=== PATIENT | female | born 1935 | race African-American/Black ===

== ENCOUNTER 2016-06-30 08:00 | Inpatient (IN) | payer OTHER, BC ==
[2016-06-24 12:24] VITALS: BMI 27.8
--- NOTE | 2016-06-30 07:46 | HP ---
Admitting History and Physical - Admission Chief Complaint: right hip osteoarthritis x years History of Present Illness: 80 year old female presents in regard to her right hip. Longstanding history of right hip osteoarthritis. Patient has failed conservative treatment including activity modification and PO medications. At this point patient would like to proceed with a right total hip arthroplasty. - Past Medical History Cardiovascular: Yes: HTN, Hyperlipdemia - Past Surgical History Additional Past Surgical History: see written H&P - Smoking History Smoking history: Never smoked Aproximately how many cigarettes per day: 10 If you are a former smoker, when did you quit?: 18 months - Alcohol/Substance Use Hx Alcohol Use: No Home Medications - Allergies Allergies/Adverse Reactions: Allergies Allergy/AdvReac Type Severity Reaction Status Date / Time No Known Allergies Allergy Verified 11/26/13 21:09 - Home Medications Home Medications: Ambulatory Orders Simvastatin [Zocor -] 20 mg PO DAILY 05/16/13 Nebivolol HCl [Bystolic] 10 mg PO DAILY 11/26/13 Lisinopril [Zestril] 20 mg PO DAILY 06/24/16 Oxycodone Sr [Oxycontin] 20 mg PO Q6H PRN 06/24/16 Review of Systems - Review of Systems Musculoskeletal: reports: Decreased ROM (right hip), Joint Pain Physical Examination Constitutional: Yes: Well Nourished, No Distress Eyes: Yes: Conjunctiva Clear HENT: Yes: Atraumatic Neck: Yes: Supple Cardiovascular: Yes: Regular Rate and Rhythm Respiratory: Yes: Regular Gastrointestinal: Yes: Soft ...Rectal Exam: Yes: Deferred Musculoskeletal: Yes: Other (Limited ROM right hip) Assessment/Plan 80 year old female with longstanding right hip osteoarthritis. Patient has failed conservative treatment. Proceed with a right total hip arthroplasty.
[2016-06-30] MEDS ORDERED: CEFAZOLIN 1 GM/D5W 50 ML IVPB ONE (09:45)
[2016-06-30] MEDS ORDERED: ROPIVICAINE 0.2%/MORPH PF/KETOROLAC - 51ML DISP.SYRINGE IA ONE ×4 (09:45→13:09)
[2016-06-30] MEDS ORDERED: TRANEXAMIC ACID 1000 MG/10 ML VIAL IVPUSH ONE (09:45)
[2016-06-30] MEDS: GABAPENTIN 300 MG CAPSULE (FP) PO ONE ×2 (09:50→17:09)
[2016-06-30] MEDS: CELECOXIB 200 MG CAPSULE PO ONE ×2 (09:50→17:09)
[2016-06-30] MEDS: oxyCODONE HCL 10 MG SUSTAINED ACTING TABLET PO ONE ×2 (09:55→17:09)
[2016-06-30] MEDS ORDERED: PATIENT'S OWN MEDICATION (NON-FORMULARY) (Simvastatin 20 MG) PO SCH (10:00)
[2016-06-30] MEDS ORDERED: VANCOMYCIN 1,000 MG VIAL (RESTRICTED TO ID ONLY) ONE (10:03)
[2016-06-30] MEDS ORDERED: ceFAZolin SODIUM 1 GM VIAL ONE (10:03)
[2016-06-30] MEDS ORDERED: EPINEPHrine/PF 1 MG/1 ML (1:1,000) AMPULE ONE (10:10)
[2016-06-30] MEDS ORDERED: BUPIVACAINE HCL/PF 0.5% (5MG/ML) 10 ML VIAL ONE ×3 (10:10→13:24)
[2016-06-30] MEDS ORDERED: DEXAMETHASONE SOD PHOSPHATE/PF 10 MG/ML SDV ONE (10:12)
[2016-06-30] MEDS ORDERED: MIDAZOLAM HCL 2 MG/2 ML SINGLE DOSE VIAL ONE (10:12)
[2016-06-30] MEDS ORDERED: MAG HYDROX/AL HYDROX/SIMETH 30 ML UNIT-DOSE CUP PO PRN (10:35)
[2016-06-30] MEDS ORDERED: MAGNESIUM HYDROX 2400MG/30ML ORAL SUSPENSION 30 ML CUP PO PRN (10:35)
[2016-06-30] MEDS ORDERED: LACTATED RINGERS SOLUTION 1,000 ML IV SCH (10:45)
[2016-06-30] MEDS ORDERED: KETOROLAC TROMETHAMINE 30 MG/1 ML VIAL IVPUSH SCH (10:45)
[2016-06-30] MEDS ORDERED: oxyCODONE HCL 5 MG TABLET PO PRN (11:27)
[2016-06-30] MEDS ORDERED: ACETAMINOPHEN 1000 MG/100 ML VIAL (NON FORMULARY) IVPB ONE (11:27)
[2016-06-30] MEDS ORDERED: VANCOMYCIN 1,000 MG VIAL (RESTRICTED TO ID ONLY) IVPB ONE ×3 (11:56→13:03)
[2016-06-30] MEDS ORDERED: TRANEXAMIC ACID 1000 MG/10 ML VIAL IVPB ONE ×3 (11:57→13:01)
[2016-06-30] MEDS ORDERED: BUPIVACAINE HCL/PF 0.5% (5MG/ML) 10 ML VIAL IJ ONE (13:26)
--- NOTE | 2016-06-30 13:56 | OP ---
Operative Note - Note: Operative Date: 06/30/16 Operation: Right total hip replacement with MAKOplasty navigation Post-Operative Diagnosis: Same as Pre-op Surgeon: Gregg Massey Private Tutors And Teachers: Marina Norman Anesthesia: Spinal Estimated Blood Loss (mls): 300 Operative Report Dictated: Yes
[2016-06-30] MEDS ORDERED: LABETALOL HCL 5 MG/1 ML (100MG/20 ML VIAL) IVPUSH ONE (14:52)
[2016-06-30] MEDS ORDERED: traMADol HCL 50 MG TABLET PO ONE (14:55)
[2016-06-30] MEDS ORDERED: PROMETHAZINE HCL 25 MG/1 ML VIAL IVPUSH PRN (15:19)
[2016-06-30] MEDS: LISINOPRIL 20 MG TABLET (FP) PO SCH (17:10)
[2016-06-30] MEDS: NEBIVOLOL 10 MG TABLET (FP) PO SCH (17:10)
[2016-06-30] MEDS: traMADol HCL 50 MG TABLET PO SCH ×2 (17:11→20:37)
[2016-06-30] MEDS: CEFAZOLIN 1 GM/D5W 50 ML IVPB SCH (17:58)
[2016-06-30] MEDS: KETOROLAC TROMETHAMINE 30 MG/1 ML VIAL IVPUSH SCH (20:35)
[2016-06-30] MEDS: ACETAMINOPHEN 325 MG TABLET (FP) PO SCH (20:36)
[2016-06-30] MEDS ORDERED: oxyCODONE HCL 10 MG SUSTAINED ACTING TABLET PO SCH (22:00)
[2016-06-30] MEDS: GABAPENTIN 300 MG CAPSULE (FP) PO SCH (22:04)
[2016-06-30] MEDS: SENNOSIDES/DOCUSATE COMBO (SENNA PLUS) TABLET (UD) PO SCH (22:04)
[2016-06-30] MEDS: ATORVASTATIN CA 10 MG TABLET (FP) PO SCH (22:04)
[2016-06-30] MEDS: oxyCODONE HCL 10 MG SUSTAINED ACTING TABLET PO SCH (22:05)
[2016-07-01] MEDS: CEFAZOLIN 1 GM/D5W 50 ML IVPB SCH (01:33)
[2016-07-01] MEDS: ACETAMINOPHEN 325 MG TABLET (FP) PO SCH ×4 (02:26→20:18)
[2016-07-01] MEDS: traMADol HCL 50 MG TABLET PO SCH ×4 (02:26→20:19)
[2016-07-01] MEDS: KETOROLAC TROMETHAMINE 30 MG/1 ML VIAL IVPUSH SCH ×2 (02:27→08:00)
[2016-07-01] MEDS: ASPIRIN 325 MG TABLET PO SCH (08:03)
[2016-07-01 08:36] LABS: MCH 26.9 pg (25.7-33.7); MCHC 31.8 g/dl (32.0-36.0); MEAN CELL VOLUME 84.5 fl (80-96); MEAN PLT VOLUME 7.8 fl (7.5-11.1); PLATELET COUNT 279 K/MM3 (134-434); RDW 15.6 % (11.6-15.6); WHITE BLOOD COUNT 8.5 K/mm3 (4.0-10.0)
[2016-07-01] MEDS ORDERED: PT OWN MED DRAWER 7, Y5N ONE (09:22)
[2016-07-01] MEDS: MULTIVITAMINS (DAILY MVI) TABLET (FP) PO SCH (09:25)
[2016-07-01] MEDS: SENNOSIDES/DOCUSATE COMBO (SENNA PLUS) TABLET (UD) PO SCH ×2 (09:25→21:51)
[2016-07-01] MEDS: LISINOPRIL 20 MG TABLET (FP) PO SCH (09:26)
[2016-07-01] MEDS: oxyCODONE HCL 5 MG TABLET PO PRN ×2 (09:26→13:43)
[2016-07-01] MEDS: GABAPENTIN 300 MG CAPSULE (FP) PO SCH ×2 (09:26→21:52)
[2016-07-01] MEDS: NEBIVOLOL 10 MG TABLET (FP) PO SCH (09:26)
[2016-07-01] MEDS: CELECOXIB 200 MG CAPSULE PO SCH (09:26)
[2016-07-01] MEDS: PANTOPRAZOLE 40 MG TABLET (FP) PO SCH (09:26)
[2016-07-01 09:27] LABS: CALCIUM 8.7 mg/dl (8.4-10.2); CREATININE 1.2 mg/dl (0.6-1.3)
[2016-07-01] MEDS: oxyCODONE HCL 10 MG SUSTAINED ACTING TABLET PO SCH ×2 (09:29→21:52)
--- NOTE | 2016-07-01 11:04 | PN ---
Progress Note (short form) - Note Progress Note: Pt seen and examined. Comfortable. No complaints. AVSS Selected Entries 07/01/16 07/01/16 06:00 06:42 Temperature 98.0 F Pulse Rate 58 L Respiratory 18 Rate Blood Pressure 138/65 O2 Sat by Pulse 95 Oximetry (%) Oxygen Delivery Room Air Method Laboratory Tests 07/01/16 07/01/16 07:00 07:00 WBC 8.5 Hgb 9.5 L Hct 29.8 L Plt Count 279 Sodium 140 Potassium 3.7 Chloride 111 H Carbon Dioxide 24 Anion Gap 5 L BUN 25 H Creatinine 1.2 Random Glucose 99 Gen: NAD RLE: c/d/i, NVID A/P 80yo female POD#1 s/p R MISHA 1. PT/OOB 2. Plan for d/c home Thursday
--- NOTE | 2016-07-01 14:43 | SPEC ---
DATE OF OPERATION: 06/30/2016 PREOPERATIVE DIAGNOSIS: Right hip osteoarthritis. POSTOPERATIVE DIAGNOSIS: Right hip osteoarthritis. PROCEDURE: Right total hip replacement with Makoplasty robotic navigation. ATTENDING: Timo Ricardo MD PICKER TENDER HELPER: KIRTI Farmer ANESTHESIA: Spinal plus sedation. ESTIMATED BLOOD LOSS: 300 mL. COMPLICATIONS: None. SPECIMEN: Resected bone was sent for pathology analysis. DISPOSITION: The patient was transferred to the PACU in stable condition. IMPLANTS USED: [place] Accolade 2 size 6 femoral component, a 52-mm acetabular component with 25-mm screw, MDM +3 head ball. INDICATIONS: This is an 80-year-old female who presented to the office complaining of longstanding bilateral hip pain. She was diagnosed with a lateral hip osteoarthritis and had failed conservative management and was subsequently indicated for total hip replacement. The right hip was more painful than the left so elects to proceed with this side 1st. Risks, benefits and alternatives to the procedure were explained to the patient in great detail and she elected to proceed with the surgery. On the day of surgery, the patient was taken to the operating room and placed on the OR table. Spinal anesthesia was administered by the anesthesiologist. The patient was then positioned in the lateral decubitus position on the table and all bony prominences were padded. An axillary roll was placed. The operative hip was then prepped and draped in the usual sterile fashion and intravenous antibiotics were given for infection prophylaxis. A surgical time-out was then performed with the team, and the patients identity, procedure, side, availability of implants, and the administration of antibiotics was confirmed. An approximately 15cm longitudinal incision was made through the skin centered on the greater trochanter of the hip. This dissection was carried down through the subcutaneous tissues to the deep fascia. This fascia was then incised and a cobra was placed around the inferior femoral neck. Electrocautery was used to reflect the anterior 40% of the gluteus medius and minimus starting at the musculotendinous junction and leaving a cuff for closure. This was reflected to reveal the capsule of the hip joint. An anterior capsulectomy was performed and the femoral head and neck was visualized. Grade 4 changes were noted diffusely throughout the joint. At this point, three small stab incisions were made superior to the main incision along the iliac crest. Three self-drilling To pins were then placed and the Moody pelvic array was attached. Reference points on the limb were then entered into the robotic device and the limb length deficiency, offset, and femoral neck resection level were then calculated by the software. The hip was then dislocated with traction and external rotation, an oscillating saw was used to make the femoral neck cut at the level previously templated, and the femoral head was removed. Attention was then turned to the acetabulum. Retractors were then placed around the acetabulum and the labrum was removed. An acetabular checkpoint pin and the [employer] software was used to register the contours of the acetabulum. The acetabulum was then reamed in a single stage to the preoperatively templated size using the [employer] robotic arm. The appropriately sized cup was then impacted and had solid fixation as well as the preset inclination and version of 40 and 20 degrees, respectively. A polyethylene liner was then placed in the cup. Attention was then turned back to the femur, which was externally rotated for improved visualization. A femoral neck elevator was used to present the femoral neck cut, a box osteotome was used to enter the femoral canal, and a canal finder was used to go down the femoral shaft. The [employer] broaches were used sequentially until the optimal scratch fit was achieved. This correlated to the preoperatively templated size. From here, several different offset head and neck configurations were tested until excellent stability and length was obtained. These measurements were quantified using the [employer] software. All trial components were then removed, the femur was copiously irrigated, and the final components were placed. Leg length and stability were checked again and found to be excellent. Irrigation was performed again. Wound closure was started by repairing the abductor muscles with a No. 2 Fiberwire stitch in a [place] configuration passed through bone tunnels in the greater trochanter and tied over a bony bridge. This repair was then reinforced with a 0 VLoc 180 barbed suture. Next, No. 1 Polysorb and 0 VLoc 180 was used to close the fascia. The deep subcutaneous tissue was closed with No. 1 Polysorb sutures, and 2-0 Polysorb was used for the superficial subcutaneous tissue. The skin was closed using both 3-0 VLoc 90 suture in a running subcuticular fashion and SwiftSet skin adhesive. The Moody array and pins were removed from the iliac crest and the stab incision sites were irrigated and closed with 4-0 Polysorb sutures and SwiftSet skin adhesive. Once this was completed a sterile dressing was applied. The patient was then awakened and taken to the PACU in stable condition. TIMO RICARDO M.D. MARINA/[id number]
--- NOTE | 2016-07-01 14:54 | PN ---
Progress Note (short form) - Note Progress Note: 80F POD1 s/p R THR under spinal and paravertebral blocks doing well. AVSS, Pt states pain is well controlled, reports no anesthetic complications. Sensory and motor function is intact in both lower extremities.
[2016-07-01] MEDS: ONDANSETRON 4 MG/2 ML VIAL IVPB PRN (15:07)
[2016-07-01] MEDS: ATORVASTATIN CA 10 MG TABLET (FP) PO SCH (21:52)
[2016-07-02] MEDS: ACETAMINOPHEN 325 MG TABLET (FP) PO SCH ×2 (03:31→09:28)
[2016-07-02] MEDS: traMADol HCL 50 MG TABLET PO SCH ×2 (03:31→09:28)
[2016-07-02 05:59] VITALS: TEMP 98
[2016-07-02] MEDS: oxyCODONE HCL 5 MG TABLET PO PRN (06:25)
[2016-07-02 08:42] LABS: MCH 26.6 pg (25.7-33.7); MCHC 30.8 g/dl (32.0-36.0); MEAN CELL VOLUME 86.6 fl (80-96); PLATELET COUNT 259 K/MM3 (134-434); RDW 15.6 % (11.6-15.6); WHITE BLOOD COUNT 7.6 K/mm3 (4.0-10.0)
[2016-07-02 08:43] LABS: CALCIUM 8.5 mg/dl (8.4-10.2); CREATININE 1.6 mg/dl (0.6-1.3)
[2016-07-02] MEDS: CELECOXIB 200 MG CAPSULE PO SCH (09:27)
[2016-07-02] MEDS: MULTIVITAMINS (DAILY MVI) TABLET (FP) PO SCH (09:27)
[2016-07-02] MEDS: ASPIRIN 325 MG TABLET PO SCH (09:27)
[2016-07-02] MEDS: NEBIVOLOL 10 MG TABLET (FP) PO SCH (09:28)
[2016-07-02] MEDS: LISINOPRIL 20 MG TABLET (FP) PO SCH (09:28)
[2016-07-02] MEDS: GABAPENTIN 300 MG CAPSULE (FP) PO SCH (09:28)
[2016-07-02] MEDS: SENNOSIDES/DOCUSATE COMBO (SENNA PLUS) TABLET (UD) PO SCH (09:28)
[2016-07-02] MEDS: PANTOPRAZOLE 40 MG TABLET (FP) PO SCH (09:28)
[2016-07-02] MEDS: oxyCODONE HCL 10 MG SUSTAINED ACTING TABLET PO SCH (09:29)
[2016-07-02] MEDS: ONDANSETRON 4 MG/2 ML VIAL IVPB PRN (09:38)
--- NOTE | 2016-07-02 10:09 | PN ---
Progress Note (short form) - Note Progress Note: Pt seen and examined. Comfortable. No complaints. AVSS Selected Entries 07/02/16 05:59 Temperature 98.0 F Pulse Rate 58 L Respiratory 19 Rate Blood Pressure 110/40 O2 Sat by Pulse 94 L Oximetry (%) Oxygen Delivery Nasal Cannula Method Laboratory Tests 07/02/16 07/02/16 07:00 07:00 WBC 7.6 Hgb 9.0 L Hct 29.4 L Plt Count 259 Sodium 139 Potassium 4.3 Chloride 107 Carbon Dioxide 27 Anion Gap 5 L BUN 33 H D Creatinine 1.6 H D Random Glucose 85 Calcium 8.5 Gen: NAD RLE: c/d/i, NVID A/P 80yo female POD#2 s/p R MISHA 1. PT/OOB 2. d/c home today
[2016-07-02 12:15] VITALS: BP 115/55; PULSE 60
--- NOTE | 2016-07-02 13:19 | PATH ---
Surgical Pathology Report Patient Name: BHARGAVI MONCADA Med. Rec. #: [id number] /Age/Gender: 1935 (Age: 80) / F Account: [id number] Location: [facility] Taken: 06/30/2016 Received: 06/30/2016 Reported: 07/02/2016 Physicians: Gregg Massey M.D. Specimen(s) Received RIGHT FEMORAL HEAD Clinical History Right hip osteoarthritis Final Diagnosis FEMORAL HEAD, RIGHT, TOTAL HIP REPLACEMENT: CONSISTENT WITH DEGENERATIVE JOINT DISEASE. Electronically Signed Mat Blackman M.D. Gross Description Received in formalin, labeled "right femoral head" is a 4.4 x 4.4 x 4.1 cm femoral head with a 1 cm in length portion of femoral neck attached. The margin of resection is smooth. There is a 2 cm in greatest dimension area of eburnation present. The remaining articular surface is christensen-yellow and focally granular. The underlying trabecular bone is yellow and heteogeneous. A technical service representative section is submitted in one cassette, following decalcification. 07/01/201607/01/2016
== END 2016-07-02 12:43 | disposition home health service (06) | DRG 470 ==
LOC: FM/S 09:04
PROVIDERS: ADMIT Student in an Organized Health Care Education/Training Program; ATTEND Student in an Organized Health Care Education/Training Program
PROC: 8E0W0CZ Robotic Assisted Procedure of Trunk Region, Open Approach (ICD-10-PCS; 2016-06-30)
PROC: 0SR902A Replacement of Right Hip Joint with Metal on Polyethylene Synthetic Substitute, Uncemented, Open Approach (ICD-10-PCS; principal; 2016-06-30 11:31)
DX: M16.11 Unilateral primary osteoarthritis, right hip (principal); I10 Essential (primary) hypertension; E78.5 Hyperlipidemia, unspecified
CPT/HCPCS: 36415; 73523-TC; 80048; 85027; 88304-TC; 88311-TC; 94010; 94760; 97116-GP; 97162-PG

== ENCOUNTER 2019-04-04 06:02 | Inpatient (IN) | payer OTHER ==
[2019-03-21 12:33] VITALS: BMI 31.2
--- NOTE | 2019-04-03 21:53 | HP ---
Admitting History and Physical - Admission Chief Complaint: left hip osteoarthritis x years History of Present Illness: 83 year old female presents in regard to their left hip. Longstanding history of left hip osteoarthritis. Patient complains of pain, limited ROM, difficulty ambulating and difficulty completing ADLs. Patient has failed conservative treatment measures including PO medications, injections, exercise programs and activity modification. At this point, patient wishes to proceed with surgical intervention, a left total hip arthroplasty - MAKOplasty. History Source: Patient - Past Medical History Cardiovascular: Yes: HTN, Hyperlipdemia Renal/: Yes: Other (overactive bladder) ...: No Musculoskeletal: Yes: Osteoarthritis - Past Surgical History Additional Past Surgical History: See written history & physical. - Smoking History Smoking history: Former smoker Have you smoked in the past 12 months: No Aproximately how many cigarettes per day: 10 If you are a former smoker, when did you quit?: 2017 - Alcohol/Substance Use Hx Alcohol Use: No Home Medications - Allergies Allergies/Adverse Reactions: Allergies Allergy/AdvReac Type Severity Reaction Status Date / Time No Known Allergies Allergy Verified 03/21/19 12:08 - Home Medications Home Medications: Ambulatory Orders Simvastatin [Zocor -] 20 mg PO DAILY 05/16/13 oxyCODONE SR [Oxycontin] 20 mg PO BID #60 tab.er.12h MDD 2 07/02/16 Lisinopril [Zestril] 40 mg PO DAILY 03/21/19 Metoprolol Tartrate 50 mg PO BID 03/21/19 Oxycodone HCl 30 mg PO Q6H PRN 03/21/19 Oxybutynin Chloride [Ditropan Xl] 10 mg PO DAILY 03/22/19 Review of Systems - Review of Systems Musculoskeletal: reports: Decreased ROM (left hip), Joint Pain (left hip) Physical Examination Constitutional: Yes: Well Nourished, No Distress Eyes: Yes: Conjunctiva Clear HENT: Yes: Atraumatic, Normocephalic Neck: Yes: Supple Cardiovascular: Yes: Regular Rate and Rhythm Respiratory: Yes: Regular Gastrointestinal: Yes: Soft ...Rectal Exam: Yes: Deferred Musculoskeletal: Yes: Joint Stiffness (left hip) Edema: RLE: 2+ Assessment/Plan 83 year old female presents in regard to their left hip. Longstanding history of left hip osteoarthritis. Patient complains of pain, limited ROM, difficulty ambulating and difficulty completing ADLs. Patient has failed conservative treatment measures including PO medications, injections, exercise programs and activity modification. At this point, patient wishes to proceed with surgical intervention, a left total hip arthroplasty - MAKOplasty. Pros, cons, risks benefits and alternatives of a left total hip arthroplasty, MAKOplasty were discussed with the patient at length. Patient confirms their understanding and consents to proceed with a left total hip arthroplasty, MAKOplasty.
[~2019-04-04 06:02] MED LIST: BUPIVICAINE 0.25%/MORPH PF/KETOROLAC - 51ML DISP.SYRINGE IA ONE; TRANEXAMIC ACID 1000 MG/10 ML VIAL IVPB ONE; VANCOMYCIN 1,000 MG VIAL (RESTRICTED TO ID ONLY) IVPB ONE
[2019-04-04] MEDS ORDERED: BUPIVICAINE 0.25%/MORPH PF/KETOROLAC - 51ML DISP.SYRINGE IA ONE ×3 (06:21→11:04)
[2019-04-04] MEDS ORDERED: TRANEXAMIC ACID 1000 MG/10 ML VIAL IVPUSH ONE (06:21)
[2019-04-04] MEDS ORDERED: CEFAZOLIN 2 GM in DEXTROSE 5%-WATER - 50 ML IVPB ONE (06:21)
[2019-04-04] MEDS ORDERED: CELECOXIB 200 MG CAPSULE PO ONE (06:21)
[2019-04-04] MEDS ORDERED: oxyCODONE HCL 10 MG SUSTAINED ACTING TABLET PO ONE (06:21)
[2019-04-04] MEDS ORDERED: PANTOPRAZOLE 40 MG TABLET (FP) PO ONE (06:22)
[2019-04-04] MEDS ORDERED: DEXAMETHASONE SOD PHOSPHATE/PF 10 MG/ML SDV ONE (07:07)
[2019-04-04] MEDS ORDERED: MIDAZOLAM HCL 2 MG/2 ML SINGLE DOSE VIAL ONE (07:08)
[2019-04-04] MEDS ORDERED: BUPIVACAINE HCL/PF 0.5% (5 MG/ML) 30 ML VIAL IJ ONE (07:08)
[2019-04-04] MEDS ORDERED: VANCOMYCIN 1,000 MG VIAL (RESTRICTED TO ID ONLY) ONE (07:15)
[2019-04-04] MEDS ORDERED: ceFAZolin SODIUM 1 GM VIAL ONE ×2 (07:15→09:06)
[2019-04-04] MEDS ORDERED: SUCCINYLCHOLINE CHLORIDE 200 MG/10 ML SYRINGE ONE (07:24)
[2019-04-04] MEDS ORDERED: EPINEPHrine/PF 1 MG/1 ML (1:1,000) AMPULE ONE (08:18)
[2019-04-04] MEDS ORDERED: VANCOMYCIN 1,000 MG VIAL (RESTRICTED TO ID ONLY) IVPB ONE (10:41)
[2019-04-04] MEDS ORDERED: TRANEXAMIC ACID 1000 MG/10 ML VIAL IVPB ONE (11:00)
[2019-04-04] MEDS ORDERED: traMADol HCL 50 MG TABLET ONE (11:44)
[2019-04-04] MEDS ORDERED: ACETAMINOPHEN INJECTION 100 ML IVPB ONE (11:44)
[2019-04-04] MEDS ORDERED: KETOROLAC TROMETHAMINE 30 MG/1 ML VIAL ONE (11:44)
[2019-04-04] MEDS: KETOROLAC TROMETHAMINE 30 MG/1 ML VIAL IVPUSH SCH ×3 (11:50→23:58)
[2019-04-04] MEDS ORDERED: hydrALAZINE HCL 20 MG/ML VIAL ONE (11:55)
--- NOTE | 2019-04-04 11:55 | OP ---
Operative Note - Note: Operative Date: 04/04/19 Pre-Operative Diagnosis: left hip OA Operation: left MISHA SHINE Post-Operative Diagnosis: Same as Pre-op Surgeon: Gregg Massey Completions Manager: Marina Norman Anesthesia: Spinal Estimated Blood Loss (mls): 150
[2019-04-04] MEDS: ACETAMINOPHEN 1000 MG/100 ML VIAL (NON FORMULARY) IVPB ONE ×2 (11:56→13:34)
[2019-04-04] MEDS ORDERED: MAGNESIUM HYDROX 2400MG/30ML ORAL SUSPENSION 30 ML CUP PO PRN (11:59)
[2019-04-04] MEDS ORDERED: MAG HYDROX/AL HYDROX/SIMETH 30 ML UNIT-DOSE CUP PO PRN (11:59)
[2019-04-04] MEDS ORDERED: ONDANSETRON 4 MG/2 ML VIAL IVPUSH PRN (11:59)
[2019-04-04] MEDS: traMADol HCL 50 MG TABLET PO SCH ×3 (11:59→23:58)
[2019-04-04] MEDS ORDERED: LACTATED RINGERS SOLUTION 1,000 ML IV SCH (12:00)
[2019-04-04] MEDS ORDERED: oxyCODONE HCL 5 MG TABLET PO PRN ×2 (13:06)
[2019-04-04] MEDS ORDERED: hydrALAZINE HCL 20 MG/ML VIAL IVPUSH ONE (13:09)
--- NOTE | 2019-04-04 13:29 | SPEC ---
DATE OF OPERATION: 04/04/2019 PREOPERATIVE DIAGNOSIS: Left hip osteoarthritis. POSTOPERATIVE DIAGNOSIS: Left hip osteoarthritis. PROCEDURE: Left total hip replacement with MAKOplasty robotic navigation. ATTENDING: Timo Ricardo MD MANAGER OF DIGITAL: KIRTI Farmer ANESTHESIA: Spinal plus sedation. ESTIMATED BLOOD LOSS: 150 mL. COMPLICATIONS: None. DISPOSITION: The patient was transferred to the PACU in stable condition. IMPLANTS USED: [place] Accolade II size 8 femoral component, Andrez Trident II 52-mm acetabular component with MDM bipolar head ball and liner with inner ceramic +4-mm offset head ball, 30 and 25-mm acetabular screws. INDICATIONS: This is an 83-year-old female who presented to the office with severe bilateral hip pain. She was seen and examined by Dr. Ricardo and diagnosed with severe bilateral hip osteoarthritis. The patient underwent a right total hip replacement in 2017 and did very well postoperatively but continued to have severe left hip pain and ambulatory dysfunction. She was initially treated conservatively, but this was not sufficient, so she was, therefore, indicated for a left total hip replacement. The risks, benefits, and alternatives to the procedure were explained to the patient in great detail, and she elected to proceed with the procedure. DESCRIPTION OF PROCEDURE: On the day of surgery, the patient was taken to the operating room and placed on the OR table. Spinal anesthesia was administered by the anesthesiologist. The patient was then positioned in the lateral decubitus position on the table and all bony prominences were padded. An axillary roll was placed. The operative hip was then prepped and draped in the usual sterile fashion and intravenous antibiotics were given for infection prophylaxis. A surgical time-out was then performed with the team, and the patients identity, procedure, side, availability of implants, and the administration of antibiotics were confirmed. An approximately 15-cm longitudinal incision was made through the skin centered on the greater trochanter of the hip. This dissection was carried down through the subcutaneous tissues to the deep fascia. This fascia was then incised and a Cobra was placed around the inferior femoral neck. Electrocautery was used to reflect the anterior 40% of the gluteus medius and minimus starting at the musculotendinous junction and leaving a cuff for closure. This was reflected to reveal the capsule of the hip joint. An anterior capsulectomy was performed and the femoral head and neck were visualized. Grade 4 changes were noted diffusely throughout the joint. At this point, three small stab incisions were made superior to the main incision along the iliac crest. Three self-drilling Steinmann pins were then placed and the [employer] pelvic array was attached. Reference points on the limb were then entered into the robotic device and the limb length deficiency, offset, and femoral neck resection level were then calculated by the software. The hip was then dislocated with traction and external rotation. An oscillating saw was used to make the femoral neck cut at the level previously templated, and the femoral head was removed. Attention was then turned to the acetabulum. Retractors were then placed around the acetabulum and the labrum was removed. An acetabular checkpoint pin and the [employer] software were used to register the contours of the acetabulum. The acetabulum was then reamed in a single stage to the preoperatively templated size using the [employer] robotic arm. The appropriately sized cup was then impacted and had solid fixation as well as the preset inclination and version of 40 and 20 degrees, respectively. A polyethylene liner was then placed in the cup. Attention was then turned back to the femur, which was externally rotated for improved visualization. A femoral neck elevator was used to present the femoral neck cut, a box osteotome was used to enter the femoral canal, and a canal finder was used to go down the femoral shaft. The Moody broaches were used sequentially until the optimal scratch fit was achieved. This correlated with the preoperatively templated size. From here, several different offset head and neck configurations were tested until excellent stability and length were obtained. These measurements were quantified using the [employer] software. All trial components were then removed, the femur was copiously irrigated, and the final components were placed. Leg length and stability were checked again and found to be excellent. Irrigation was performed again. After final implants were placed, a 3-minute dilute Betadine lavage was performed. Following this, the wound was thoroughly irrigated with normal saline via pulsatile lavage, and wound closure was begun. Wound closure was started by repairing the abductor muscles with a no. 2 FiberWire stitch in a [place] configuration passed through bone tunnels in the greater trochanter and tied over a bony bridge. This repair was then reinforced with a 0 V-Loc 180 barbed suture. Next, no. 1 Polysorb and 0 V-Loc 180 were used to close the fascia. The deep subcutaneous tissue was closed with no. 1 Polysorb sutures, and 2-0 Polysorb was used for the superficial subcutaneous tissue. The skin was closed using both 3-0 V-Loc 90 suture in a running subcuticular fashion and SwiftSet skin adhesive. The Moody array and pins were removed from the iliac crest and the stab incision sites were irrigated and closed with 4-0 Polysorb sutures and SwiftSet skin adhesive. Once this was completed, a sterile dressing was applied. The patient was then awakened and taken to the PACU in stable condition. TIMO RICARDO M.D. [id number]
[2019-04-04] MEDS: ACETAMINOPHEN 325 MG TABLET (FP) PO SCH ×2 (18:28→23:58)
[2019-04-04] MEDS: CEFAZOLIN 2 GM/D5W 2 GM/50 ML ML IVPB SCH (18:30)
[2019-04-04] MEDS ORDERED: DEXAMETHASONE SOD PHOSPHATE 10 MG/1 ML VIAL IVPB ONE (20:00)
[2019-04-04] MEDS: SENNOSIDES/DOCUSATE COMBO (SENNA PLUS) TABLET (UD) PO SCH (21:34)
[2019-04-04] MEDS: ASCORBIC ACID 500 MG TABLET (FP) PO SCH (21:34)
[2019-04-04] MEDS: METOPROLOL TARTRATE 50 MG TABLET (FP) PO SCH (21:34)
[2019-04-04] MEDS: GABAPENTIN 300 MG CAPSULE (FP) PO SCH (21:34)
[2019-04-04] MEDS: CELECOXIB 200 MG CAPSULE PO SCH (21:35)
[2019-04-04] MEDS: oxyCODONE HCL 10 MG SUSTAINED ACTING TABLET PO SCH (21:36)
[2019-04-05] MEDS: CEFAZOLIN 2 GM/D5W 2 GM/50 ML ML IVPB SCH (01:04)
[2019-04-05] MEDS: traMADol HCL 50 MG TABLET PO SCH ×4 (06:21→23:43)
[2019-04-05] MEDS: KETOROLAC TROMETHAMINE 30 MG/1 ML VIAL IVPUSH SCH (06:21)
[2019-04-05] MEDS: ACETAMINOPHEN 325 MG TABLET (FP) PO SCH ×4 (06:22→23:43)
[2019-04-05] MEDS: ASPIRIN 325 MG TABLET PO SCH (08:00)
[2019-04-05 08:16] LABS: CALCIUM 8.4 mg/dl (8.5-10); CREATININE 1.1 mg/dl (0.55-1.3); POTASSIUM 4.3 mmol/L (3.5-5.1)
[2019-04-05 08:29] LABS: MCH 29.6 pg (25.7-33.7); MCHC 33.2 g/dl (32.0-36.0); MEAN CELL VOLUME 89.1 fl (80-96); MEAN PLT VOLUME 8.3 fl (7.5-11.1); PLATELET COUNT 266 K/MM3 (134-434); RBC 4.04 M/mm3 (3.60-5.2); RDW 14.6 % (11.6-15.6); WHITE BLOOD COUNT 9.1 K/mm3 (4.0-10.8)
[2019-04-05] MEDS: SENNOSIDES/DOCUSATE COMBO (SENNA PLUS) TABLET (UD) PO SCH ×2 (09:15→21:22)
[2019-04-05] MEDS: CELECOXIB 200 MG CAPSULE PO SCH ×2 (09:15→21:21)
[2019-04-05] MEDS: METOPROLOL TARTRATE 50 MG TABLET (FP) PO SCH ×2 (09:15→21:21)
[2019-04-05] MEDS: GABAPENTIN 300 MG CAPSULE (FP) PO SCH ×2 (09:15→21:21)
[2019-04-05] MEDS: oxyCODONE HCL 10 MG SUSTAINED ACTING TABLET PO SCH ×2 (09:15→21:21)
[2019-04-05] MEDS: ATORVASTATIN CA 10 MG TABLET (FP) PO SCH (09:15)
[2019-04-05] MEDS: PANTOPRAZOLE 40 MG TABLET (FP) PO SCH (09:20)
[2019-04-05] MEDS: ASCORBIC ACID 500 MG TABLET (FP) PO SCH ×2 (09:20→21:22)
[2019-04-05] MEDS: LISINOPRIL 20 MG TABLET (FP) PO SCH (09:20)
[2019-04-05] MEDS: SOLIFENACIN SUCCINATE 5 MG TAB PO SCH (09:20)
[2019-04-05] MEDS: MULTIVITAMINS (DAILY MVI) TABLET (FP) PO SCH (09:20)
[2019-04-05] MEDS ORDERED: PATIENT'S OWN MEDICATION (NON-FORMULARY) (Simvastatin 20 MG) PO SCH (10:00)
[2019-04-05] MEDS ORDERED: PATIENT'S OWN MEDICATION (NON-FORMULARY) (Oxybutynin Chloride [Ditropan Xl] 10 MG) PO SCH (10:00)
--- NOTE | 2019-04-05 20:32 | PN ---
Progress Note (short form) - Note Progress Note: Pt seen and examined. Doing well. AVSS Selected Entries 04/06/19 02:00 Temperature 98.1 F Pulse Rate 79 Respiratory 17 Rate Blood Pressure 129/50 L O2 Sat by Pulse 95 Oximetry (%) Oxygen Delivery Room Air Method Laboratory Tests 04/05/19 04/05/19 06:59 06:59 WBC 9.1 Hgb 12.0 Hct 36.0 D Plt Count 266 Sodium 141 Potassium 4.3 Chloride 110 H Carbon Dioxide 22 Anion Gap 9 BUN 29.0 H Creatinine 1.1 Random Glucose 132 H Calcium 8.4 L Gen: NAD LLE: c/d/i, NVID A/P 83yo female s/p L SHINE MISHA PT/OOB D/C home Thursday
[2019-04-06 06:25] VITALS: TEMP 98.3
[2019-04-06] MEDS: traMADol HCL 50 MG TABLET PO SCH ×2 (06:32→12:29)
[2019-04-06] MEDS: ACETAMINOPHEN 325 MG TABLET (FP) PO SCH ×2 (06:36→12:29)
[2019-04-06] MEDS: ASPIRIN 325 MG TABLET PO SCH (07:25)
[2019-04-06 08:25] LABS: HEMATOCRIT 36.2 % (32.4-45.2); HEMOGLOBIN 11.9 GM/dl (10.7-15.3); MCH 29.2 pg (25.7-33.7); MCHC 32.8 g/dl (32.0-36.0); MEAN CELL VOLUME 89.1 fl (80-96); MEAN PLT VOLUME 8.3 fl (7.5-11.1); PLATELET COUNT 231 K/MM3 (134-434); RBC 4.06 M/mm3 (3.60-5.2); RDW 14.8 % (11.6-15.6); WHITE BLOOD COUNT 6.2 K/mm3 (4.0-10.8)
[2019-04-06 09:14] VITALS: BP 130/50; PULSE 60
[2019-04-06] MEDS: SENNOSIDES/DOCUSATE COMBO (SENNA PLUS) TABLET (UD) PO SCH (09:44)
[2019-04-06] MEDS: PANTOPRAZOLE 40 MG TABLET (FP) PO SCH (09:45)
[2019-04-06] MEDS: CELECOXIB 200 MG CAPSULE PO SCH (09:45)
[2019-04-06] MEDS: METOPROLOL TARTRATE 50 MG TABLET (FP) PO SCH (09:45)
[2019-04-06] MEDS: SOLIFENACIN SUCCINATE 5 MG TAB PO SCH (09:45)
[2019-04-06] MEDS: ATORVASTATIN CA 10 MG TABLET (FP) PO SCH (09:45)
[2019-04-06] MEDS: LISINOPRIL 20 MG TABLET (FP) PO SCH (09:45)
[2019-04-06] MEDS: ASCORBIC ACID 500 MG TABLET (FP) PO SCH (09:45)
[2019-04-06] MEDS: MULTIVITAMINS (DAILY MVI) TABLET (FP) PO SCH (09:45)
[2019-04-06] MEDS: GABAPENTIN 300 MG CAPSULE (FP) PO SCH (09:45)
[2019-04-06] MEDS: oxyCODONE HCL 10 MG SUSTAINED ACTING TABLET PO SCH (09:46)
--- NOTE | 2019-04-06 10:03 | DS ---
Physical Examination Vital Signs: Vital Signs Temperature 98.3 F 04/06/19 09:12 Pulse Rate 60 04/06/19 09:12 Respiratory Rate 14 04/06/19 09:12 Blood Pressure 130/50 L 04/06/19 09:12 O2 Sat by Pulse Oximetry (%) 96 04/06/19 07:55 Labs: CBC, BMP 04/06/19 08:08 04/05/19 06:59 Discharge Summary Problems reviewed: Yes Reason For Visit: LEFT HIP OSTEOARTHRITIS Current Active Problems Osteoarthritis of left hip (Acute) Procedures: Principal: left nathalie MISHA Hospital Course: Admitted for elective surgery. Procedure performed without complications. Pt received postoperative antibiotic prophylaxis and DVT ppx. Ambulated with physical therapy. Stable for discharge home with outpatient followup. Condition: Stable - Instructions Diet, Activity, Other Instructions: Dr Massey - Hip Replacement Instructions Keep the Aquacel dressing on until removed by Dr. Massey - it is antibacterial and waterproof and you can shower with it on. Follow up with Dr. Massey ThursdayApril 23 at 12:30PM at the [facility]. [address] [place] [address] Take one Aspirin 325mg daily for 6 weeks to prevent blood clots in your legs. Take one Pantoprazole 40mg daily for 6 weeks to protect against heartburn and ulcers. Take Cephalexin (antibiotic) 3x/day for 10 days to help prevent skin infection. Take Celebrex 200mg daily for 30 days to reduce swelling and inflammation. Take a multivitamin, stool softener and extra Vitamin C supplement daily. For pain: Resume taking your preop dose of OxyContin 20mg twice daily. Stop taking your preop oxycodone 30mg as you will have less pain overall now that the arthritis is gone. Instead, take Percocet 10/325 mg every 3 hours as needed for pain. Activity: You can put as much weight on the operative leg as you want. For the first 6 weeks, all you need to do is walk around the house, go up/down stairs, and sit down/get up. After 6 weeks when everything is healed (and bone has grown into the implant) you will be sent for more intensive outpatient physical therapy. Always use a walker or cane for balance and to prevent falls. Expect to see swelling / bruising from the operative site all the way down to your toes. Wear the Compression stocking on the operative side during the day to minimize how much swelling there is in your foot/ankle. Don't wear the stocking at night. You don't have to wear the stocking on the other side. Disposition: VNS/HOME HEALTH CARE - Home Medications Comprehensive Discharge Medication List: Ambulatory Orders Simvastatin [Zocor -] 20 mg PO DAILY 05/16/13 oxyCODONE SR [Oxycontin] 20 mg PO BID #60 tab.er.12h MDD 2 07/02/16 Lisinopril [Zestril] 40 mg PO DAILY 03/21/19 Metoprolol Tartrate 50 mg PO BID 03/21/19 Oxybutynin Chloride [Ditropan Xl] 10 mg PO DAILY 03/22/19 Ascorbic Acid [Vitamin C -] 500 mg PO BID tablet 04/06/19 Aspirin [ASA -] 325 mg PO DAILY@0800 tablet 04/06/19 Celecoxib [CeleBREX -] 200 mg PO DAILY #30 capsule 04/06/19 Cephalexin Monohydrate [Keflex -] 500 mg PO TID #30 capsule 04/06/19 Multivitamins [Multivit ([facility] Formulary)] 1 tab PO DAILY tab 04/06/19 Oxycodone HCl/Acetaminophen [Percocet 10-325 mg Tablet] 1 each PO Q3H PRN #90 tablet MDD 8 04/06/19 Pantoprazole Sodium [Protonix -] 40 mg PO DAILY #40 tablet.ec 04/06/19 Sennosides/Docusate Sodium [Pericolace -] 2 tablet PO BID tablet 04/06/19
--- NOTE | 2019-04-06 16:00 | PATH ---
Surgical Pathology Report Patient Name: BHARGAVI MONCADA Med. Rec. #: [id number] /Age/Gender: 1935 (Age: 83) / F Account: [id number] Location: [facility] MED[facility] Taken: 04/04/2019 Received: 04/04/2019 Reported: 04/06/2019 Physicians: Gregg Massey M.D. Specimen(s) Received LEFT FEMORAL HEAD Clinical History Left hip osteoarthritis Final Diagnosis FEMORAL HEAD, LEFT, TOTAL HIP REPLACEMENT: DEGENERATIVE JOINT DISEASE. Electronically Signed Divina Ball M.D. Gross Description Received in formalin, labeled "left femoral head," is a 4.4 x 4.4 x 3.7 cm. femoral head with a 1.0 cm in length portion of femoral neck attached. The margin of resection is smooth. There is a 1.5 cm in greatest dimension area of eburnation present. The remaining articular surface is christensen-yellow and focally granular. The underlying trabecular bone is yellow and hard. A sales representative health insurance section is submitted in one cassette, following decalcification. /04/05/2019 [facility]04/05/2019
== END 2019-04-06 13:25 | disposition home health service (06) | DRG 470 ==
LOC: FM/S 06:02
PROVIDERS: ADMIT Student in an Organized Health Care Education/Training Program; ATTEND Student in an Organized Health Care Education/Training Program
PROC: 8E0W0CZ Robotic Assisted Procedure of Trunk Region, Open Approach (ICD-10-PCS; 2019-04-04)
PROC: 0SRB03A Replacement of Left Hip Joint with Ceramic Synthetic Substitute, Uncemented, Open Approach (ICD-10-PCS; principal; 2019-04-04 09:19)
DX: M16.12 Unilateral primary osteoarthritis, left hip (principal); I10 Essential (primary) hypertension; E78.5 Hyperlipidemia, unspecified; Z87.891 Personal history of nicotine dependence
CPT/HCPCS: 36415; 73502-TC-LT-FY; 80048; 85027; 88305-TC; 88311-TC; 94760; 97116-GP; 97163-GP; J0131; J1100

== ENCOUNTER 2020-06-11 10:21 | Emergency (ER) | payer OTHER | END 2020-06-11 13:00 | disposition home or self-care (01) | LOC: JVIRT 10:21 | DX: Z03.818 Encounter for observation for suspected exposure to other biological agents ruled out (principal) | CPT/HCPCS: C9803; G2012-GT; Q3014-GT; U0003 ==

== ENCOUNTER 2020-07-31 14:18 | Inpatient (IN) | payer OTHER ==
[2020-07-31 18:10] LABS: BASO % 3.3 % (0-2.0); EOS % 3.5 % (0-4.5); HEMATOCRIT 31.8 % (32.4-45.2); HEMOGLOBIN 10.1 GM/dl (10.7-15.3); LYMPH % 26.5 % (8-40); MCH 28.7 pg (25.7-33.7); MCHC 31.7 g/dl (32.0-36.0); MEAN CELL VOLUME 90.4 fl (80-96); MEAN PLT VOLUME 7.5 fl (7.5-11.1); MONO % 11.4 % (3.8-10.2); NEUT % 55.3 % (42.8-82.8); PLATELET COUNT 240 K/MM3 (134-434); RBC 3.52 M/mm3 (3.60-5.2); RDW 17.6 % (11.6-15.6)
[2020-07-31 18:24] LABS: CALCIUM 8.7 mg/dl (8.5-10); PHOSPHOROUS 3.7 mg/dl (2.5-4.9); POTASSIUM 4.3 mmol/L (3.5-5.1)
[2020-07-31 18:35] LABS: ALBUMIN 3.2 g/dl (3.4-5.0); BILIRUBIN,TOTAL 0.6 mg/dl (0.2-1); CREATININE 1.5 mg/dl (0.55-1.3); MAGNESIUM 1.9 mg/dL (1.8-2.4)
[2020-07-31 20:15] LABS: N-TERMINAL BNP 4466.7 pg/ml (5-450)
[2020-07-31] MEDS ORDERED: FUROSEMIDE 20 MG TABLET (FP) PO ONE (20:28)
[2020-07-31] MEDS ORDERED: FUROSEMIDE 40 MG/4 ML INJECTABLE VIAL IVPUSH ONE (20:50)
[2020-07-31] MEDS ORDERED: FUROSEMIDE 100 MG/10 ML INJECTABLE VIAL ONE (20:51)
[2020-07-31] MEDS ORDERED: MELATONIN 5 MG TABLETS PO ONE (22:54)
[2020-08-01 02:20] VITALS: BMI 38.6
[2020-08-01 03:07] LABS: EPI CELLS 15 /uL (0-25.1); HYALINE CASTS 1 /uL (0-3.1); URINE APPEARANCE CLEAR; URINE BACTERIA 115 /uL (0-1359); URINE BILIRUBIN NEGATIVE (NEGATIVE); URINE COLOR YELLOW; URINE GLUCOSE (UA) NEGATIVE (NEGATIVE); URINE KETONE NEGATIVE (NEGATIVE); URINE LEUK ESTERASE 2+ (NEGATIVE); URINE NITRITE NEGATIVE (NEGATIVE); URINE PROTEIN NEGATIVE (NEGATIVE); URINE RBC 11 /uL (0-23.9); URINE UROBILINOGEN 0.2 mg/dL (0.2-1.0); URINE WBC 96 /uL (0-25.8)
[2020-08-01] MEDS ORDERED: METOPROLOL TARTRATE 50 MG TABLET (FP) PO ONE (05:55)
[2020-08-01] MEDS ORDERED: hydrALAZINE HCL 25 MG TABLET (FP) PO SCH (06:00)
[2020-08-01 08:11] LABS: CALCIUM 8.3 mg/dl (8.5-10); CREATININE 1.3 mg/dl (0.55-1.3); MAGNESIUM 1.7 mg/dL (1.8-2.4); PHOSPHOROUS 4.6 mg/dl (2.5-4.9); POTASSIUM 4.3 mmol/L (3.5-5.1)
[2020-08-01 08:13] LABS: HEMATOCRIT 28.5 % (32.4-45.2); HEMOGLOBIN 9.1 GM/dl (10.7-15.3); MCH 28.9 pg (25.7-33.7); MCHC 31.8 g/dl (32.0-36.0); MEAN CELL VOLUME 90.9 fl (80-96); MEAN PLT VOLUME 7.8 fl (7.5-11.1); PLATELET COUNT 209 K/MM3 (134-434); RBC 3.14 M/mm3 (3.60-5.2); RDW 17.5 % (11.6-15.6); WHITE BLOOD COUNT 4.1 K/mm3 (4.0-10.8)
[2020-08-01] MEDS ORDERED: PATIENT'S OWN MEDICATION (NON-FORMULARY) (Oxybutynin Chloride [Ditropan Xl] 10 MG Tab.Er.2 PO SCH (10:00)
[2020-08-01] MEDS: METOPROLOL TARTRATE 50 MG TABLET (FP) PO SCH ×2 (10:17→21:32)
[2020-08-01] MEDS: FUROSEMIDE 40 MG/4 ML INJECTABLE VIAL IVPUSH SCH ×2 (10:18→21:32)
[2020-08-01] MEDS: APIXABAN 5 MG TABLET PO SCH ×2 (10:18→21:32)
[2020-08-01] MEDS: SOLIFENACIN SUCCINATE 5 MG TAB PO SCH (13:06)
[2020-08-01] MEDS ORDERED: MAGNESIUM SULF 50% (8.12 MEQ/2 ML-1 GM VIAL) IVPB ONE (15:04)
[2020-08-01] MEDS: ATORVASTATIN CA 20 MG TABLET (FP) PO SCH (21:32)
[2020-08-01] MEDS: MELATONIN 5 MG TABLETS PO PRN (21:33)
[2020-08-02] MEDS: FUROSEMIDE 40 MG/4 ML INJECTABLE VIAL IVPUSH SCH ×2 (06:28→14:03)
[2020-08-02 08:17] LABS: ALBUMIN 2.7 g/dl (3.4-5.0); BILIRUBIN,TOTAL 0.6 mg/dl (0.2-1); CALCIUM 8.2 mg/dl (8.5-10); CREATININE 1.7 mg/dl (0.55-1.3); POTASSIUM 4.6 mmol/L (3.5-5.1)
[2020-08-02 08:23] LABS: BASO % 4.1 % (0-2.0); EOS % 8.7 % (0-4.5); HEMOGLOBIN 9.5 GM/dl (10.7-15.3); LYMPH % 31.6 % (8-40); MCH 30.2 pg (25.7-33.7); MCHC 32.7 g/dl (32.0-36.0); MEAN CELL VOLUME 92.5 fl (80-96); MEAN PLT VOLUME 7.8 fl (7.5-11.1); MONO % 15.8 % (3.8-10.2); NEUT % 39.8 % (42.8-82.8); PLATELET COUNT 225 K/MM3 (134-434); RBC 3.14 M/mm3 (3.60-5.2); RDW 17.1 % (11.6-15.6)
[2020-08-02] MEDS: METOPROLOL TARTRATE 50 MG TABLET (FP) PO SCH ×2 (09:31→22:19)
[2020-08-02] MEDS: SOLIFENACIN SUCCINATE 5 MG TAB PO SCH (09:31)
[2020-08-02] MEDS: APIXABAN 5 MG TABLET PO SCH ×2 (09:31→22:19)
[2020-08-02] MEDS: ATORVASTATIN CA 20 MG TABLET (FP) PO SCH (22:19)
[2020-08-02] MEDS: MELATONIN 5 MG TABLETS PO PRN (23:42)
[2020-08-02] MEDS: ACETAMINOPHEN 325 MG TABLET (FP) PO PRN (23:42)
[2020-08-03] MEDS: FUROSEMIDE 40 MG/4 ML INJECTABLE VIAL IVPUSH SCH ×2 (06:50→14:37)
[2020-08-03 08:00] LABS: BASO % 2.9 % (0-2.0); EOS % 6.6 % (0-4.5); HEMATOCRIT 30.5 % (32.4-45.2); HEMOGLOBIN 9.6 GM/dl (10.7-15.3); MCH 28.8 pg (25.7-33.7); MCHC 31.5 g/dl (32.0-36.0); MEAN CELL VOLUME 91.6 fl (80-96); MEAN PLT VOLUME 7.9 fl (7.5-11.1); MONO % 12.5 % (3.8-10.2); PLATELET COUNT 225 K/MM3 (134-434); RBC 3.33 M/mm3 (3.60-5.2); RDW 17.7 % (11.6-15.6); WHITE BLOOD COUNT 4.3 K/mm3 (4.0-10.8)
[2020-08-03 08:04] LABS: ALBUMIN 2.9 g/dl (3.4-5.0); BILIRUBIN,TOTAL 0.5 mg/dl (0.2-1); CALCIUM 8.1 mg/dl (8.5-10); CREATININE 1.9 mg/dl (0.55-1.3); POTASSIUM 4.9 mmol/L (3.5-5.1); TOT PROT 5.2 g/dl (6.4-8.2)
[2020-08-03] MEDS: METOPROLOL TARTRATE 50 MG TABLET (FP) PO SCH ×2 (09:31→22:23)
[2020-08-03] MEDS: ACETAMINOPHEN 325 MG TABLET (FP) PO PRN (09:31)
[2020-08-03] MEDS: SOLIFENACIN SUCCINATE 5 MG TAB PO SCH (09:31)
[2020-08-03] MEDS: APIXABAN 5 MG TABLET PO SCH ×2 (09:31→22:23)
[2020-08-03] MEDS: MELATONIN 5 MG TABLETS PO PRN (22:23)
[2020-08-03] MEDS: ATORVASTATIN CA 20 MG TABLET (FP) PO SCH (22:23)
[2020-08-03 23:39] LABS: URINE APPEARANCE CLEAR; URINE BILIRUBIN NEGATIVE (NEGATIVE); URINE COLOR YELLOW; URINE GLUCOSE (UA) NEGATIVE (NEGATIVE); URINE KETONE NEGATIVE (NEGATIVE); URINE LEUK ESTERASE NEGATIVE (NEGATIVE); URINE NITRITE NEGATIVE (NEGATIVE); URINE PROTEIN 2+ (NEGATIVE); URINE UROBILINOGEN 0.2 (0.2-1.0)
[2020-08-03 23:40] LABS: EPI CELLS FEW /HPF; URINE BACTERIA FEW /hpf (NEGATIVE)
[2020-08-03 23:43] LABS: CREATININE, URINE RANDOM 178.5 mg/dL
[2020-08-04] MEDS: METOPROLOL TARTRATE 50 MG TABLET (FP) PO SCH ×2 (09:59→22:17)
[2020-08-04] MEDS: FUROSEMIDE 40 MG/4 ML INJECTABLE VIAL IVPUSH SCH (09:59)
[2020-08-04] MEDS: APIXABAN 5 MG TABLET PO SCH ×2 (09:59→22:17)
[2020-08-04 16:20] LABS: BILIRUBIN,TOTAL 0.5 mg/dl (0.2-1); CALCIUM 7.9 mg/dl (8.5-10); CREATININE 1.8 mg/dl (0.55-1.3); TOT PROT 5.7 g/dl (6.4-8.2)
[2020-08-04] MEDS: ACETAMINOPHEN 325 MG TABLET (FP) PO PRN (22:17)
[2020-08-04] MEDS: MELATONIN 5 MG TABLETS PO PRN (22:17)
[2020-08-04] MEDS: ATORVASTATIN CA 20 MG TABLET (FP) PO SCH (22:17)
[2020-08-05] MEDS: ACETAMINOPHEN 325 MG TABLET (FP) PO PRN (10:01)
[2020-08-05] MEDS: FUROSEMIDE 40 MG/4 ML INJECTABLE VIAL IVPUSH SCH (10:01)
[2020-08-05] MEDS: METOPROLOL TARTRATE 50 MG TABLET (FP) PO SCH ×2 (10:02→21:07)
[2020-08-05] MEDS: APIXABAN 5 MG TABLET PO SCH ×2 (10:02→21:07)
[2020-08-05] MEDS: ATORVASTATIN CA 20 MG TABLET (FP) PO SCH (21:07)
[2020-08-06 06:29] VITALS: PULSE 100
[2020-08-06 09:31] LABS: HEMATOCRIT 31.5 % (32.4-45.2); HEMOGLOBIN 9.8 GM/dl (10.7-15.3); MCH 28.6 pg (25.7-33.7); MEAN CELL VOLUME 92.3 fl (80-96); MEAN PLT VOLUME 7.7 fl (7.5-11.1); PLATELET COUNT 279 K/MM3 (134-434); RBC 3.42 M/mm3 (3.60-5.2); RDW 17.6 % (11.6-15.6); WHITE BLOOD COUNT 4.1 K/mm3 (4.0-10.8)
[2020-08-06 09:43] LABS: ALBUMIN 3.1 g/dl (3.4-5.0); BILIRUBIN,TOTAL 0.4 mg/dl (0.2-1); CREATININE 1.3 mg/dl (0.55-1.3); MAGNESIUM 1.9 mg/dL (1.8-2.4); TOT PROT 5.9 g/dl (6.4-8.2)
[2020-08-06 09:46] LABS: CALCIUM 8.3 mg/dl (8.5-10); POTASSIUM 5.2 mmol/L (3.5-5.1)
[2020-08-06] MEDS ORDERED: SODIUM ZIRCONIUM CYCLOSILICATE (LOKELMA) 5 GM PACKET PO ONE (10:00)
[2020-08-06 10:59] VITALS: BP 115/53; TEMP 97.9
[2020-08-06] MEDS: FUROSEMIDE 40 MG/4 ML INJECTABLE VIAL IVPUSH SCH (11:00)
[2020-08-06] MEDS: APIXABAN 5 MG TABLET PO SCH (11:00)
[2020-08-06] MEDS: METOPROLOL TARTRATE 50 MG TABLET (FP) PO SCH (11:00)
[2020-08-06 11:50] LABS: PLATELET ESTIMATE ADEQUATE
[2020-08-06] MEDS ORDERED: LOCK ITEM NR ONE (18:08)
== END 2020-08-06 17:50 | disposition home or self-care (01) | DRG 291 ==
LOC: FER 14:18 → FM/S 21:32 → UNDOADMIN 08-01 00:57
PROVIDERS: ADMIT Hospitalist; ATTEND Nurse Practitioner Acute Care
DX: I11.0 Hypertensive heart disease with heart failure (principal); J96.21 Acute and chronic respiratory failure with hypoxia; I48.20 Chronic atrial fibrillation, unspecified; I24.8 Other forms of acute ischemic heart disease; N17.9 Acute kidney failure, unspecified; E66.9 Obesity, unspecified; I50.33 Acute on chronic diastolic (congestive) heart failure; I48.91 Unspecified atrial fibrillation; I73.9 Peripheral vascular disease, unspecified; Z79.01 Long term (current) use of anticoagulants; G62.9 Polyneuropathy, unspecified; M54.30 Sciatica, unspecified side; E78.5 Hyperlipidemia, unspecified; N32.81 Overactive bladder; I89.0 Lymphedema, not elsewhere classified; E83.42 Hypomagnesemia; M16.0 Bilateral primary osteoarthritis of hip; I27.20 Pulmonary hypertension, unspecified; B19.20 Unspecified viral hepatitis C without hepatic coma; Z86.16 Personal history of COVID-19; Z68.39 Body mass index [BMI] 39.0-39.9, adult
CPT/HCPCS: 36415; 71045-TC-FY; 76775-TC; 76856-TC; 80048; 80053; 81003; 82436; 82465; 82550; 82565; 83735; 83880; 84100; 84133; 84300; 84443; 84484; 85025; 85027; 87086; 93005; 93306-TC; 93970-TC; 97116-GP; 97162-GP; 99285-25; C9803; U0003

== ENCOUNTER 2022-12-31 17:19 | Inpatient (IN) | payer OTHER ==
[2022-12-31] MEDS ORDERED: FUROSEMIDE 40 MG/4 ML INJECTABLE VIAL IVPUSH ONE (18:27)
[2022-12-31 18:48] LABS: BASO % 1.5 % (0-2.0); EOS % 2.9 % (0-4.5); HEMATOCRIT 38.7 % (32.4-45.2); HEMOGLOBIN 12.3 GM/dL (10.7-15.3); LYMPH % 25.9 % (8-40); MCH 28.5 pg (25.7-33.7); MCHC 31.8 g/dl (32.0-36.0); MEAN CELL VOLUME 89.5 fl (80-96); MEAN PLT VOLUME 7.6 fl (7.5-11.1); MONO % 13.5 % (3.8-10.2); NEUT % 56.2 % (42.8-82.8); PLATELET COUNT 224 10^3/uL (134-434); RBC 4.32 M/mm3 (3.60-5.2)
[2022-12-31] MEDS ORDERED: FUROSEMIDE 40 MG/4 ML INJECTABLE VIAL ONE (18:49)
[2022-12-31 19:09] LABS: POTASSIUM 5.2 mmol/L (3.5-5.1)
[2022-12-31 19:11] LABS: CALCIUM 8.6 mg/dL (8.5-10.1)
[2022-12-31 19:12] LABS: ALBUMIN 3.2 g/dl (3.4-5.0); BLOOD UREA NITROGEN 47.9 mg/dL (7-18); MAGNESIUM 2.5 mg/dL (1.8-2.4)
[2022-12-31 19:17] LABS: BILIRUBIN,TOTAL 0.4 mg/dL (0.2-1); TOT PROT 7.3 g/dl (6.4-8.2)
[2022-12-31 19:20] LABS: N-TERMINAL BNP 3283.3 pg/ml (5-450)
[2023-01-01] MEDS: FUROSEMIDE 40 MG/4 ML INJECTABLE VIAL IVPUSH SCH ×3 (01:26→17:49)
[2023-01-01] MEDS ORDERED: oxyCODONE HCL 20 MG SUSTAINED ACTING TABLET PO PRN (01:55)
[2023-01-01] MEDS: METOPROLOL TARTRATE 50 MG TABLET (FP) PO SCH ×3 (05:55→21:47)
[2023-01-01 09:32] LABS: HEMATOCRIT 39.4 % (32.4-45.2); HEMOGLOBIN 12.7 GM/dL (10.7-15.3); MCH 28.9 pg (25.7-33.7); MCHC 32.4 g/dl (32.0-36.0); MEAN CELL VOLUME 89.2 fl (80-96); MEAN PLT VOLUME 7.7 fl (7.5-11.1); PLATELET COUNT 236 10^3/uL (134-434); RBC 4.41 M/mm3 (3.60-5.2); RDW 16.4 % (11.6-15.6); WHITE BLOOD COUNT 5.1 K/mm3 (4.0-10.0)
[2023-01-01 09:53] LABS: POTASSIUM 4.1 mmol/L (3.5-5.1)
[2023-01-01 10:10] LABS: BLOOD UREA NITROGEN 43.5 mg/dL (7-18); MAGNESIUM 2.4 mg/dL (1.8-2.4)
[2023-01-01 10:13] LABS: CREATININE 1.7 mg/dL (0.55-1.3); PHOSPHOROUS 3.9 mg/dL (2.5-4.9)
[2023-01-01] MEDS: APIXABAN 5 MG TABLET PO SCH ×2 (11:57→21:47)
[2023-01-01 16:00] VITALS: BMI 32.5
[2023-01-01] MEDS ORDERED: TRIMETHOBENZAMIDE HCL 200MG/2ML INJ IM PRN (16:14)
[2023-01-01] MEDS ORDERED: TRIMETHOBENZAMIDE HCL 200MG/2ML INJ IM ONE (20:40)
[2023-01-01] MEDS: ATORVASTATIN CA 20 MG TABLET (FP) PO SCH (21:47)
[2023-01-02] MEDS: FUROSEMIDE 40 MG/4 ML INJECTABLE VIAL IVPUSH SCH ×3 (02:25→14:27)
[2023-01-02] MEDS: METOPROLOL TARTRATE 50 MG TABLET (FP) PO SCH ×2 (09:38→22:05)
[2023-01-02] MEDS: APIXABAN 5 MG TABLET PO SCH ×2 (09:39→22:05)
[2023-01-02 10:57] LABS: HEMATOCRIT 40.1 % (32.4-45.2); HEMOGLOBIN 12.7 GM/dL (10.7-15.3); MCH 28.8 pg (25.7-33.7); MCHC 31.6 g/dl (32.0-36.0); MEAN CELL VOLUME 91.2 fl (80-96); MEAN PLT VOLUME 8.5 fl (7.5-11.1); PLATELET COUNT 210 10^3/uL (134-434); RDW 16.8 % (11.6-15.6); WHITE BLOOD COUNT 6.1 K/mm3 (4.0-10.0)
[2023-01-02 11:17] LABS: POTASSIUM 4.7 mmol/L (3.5-5.1)
[2023-01-02 11:26] LABS: CALCIUM 9.1 mg/dL (8.5-10.1)
[2023-01-02 11:28] LABS: BLOOD UREA NITROGEN 37.2 mg/dL (7-18)
[2023-01-02 11:30] LABS: CREATININE 1.6 mg/dL (0.55-1.3)
[2023-01-02 12:35] LABS: MAGNESIUM 2.2 mg/dL (1.8-2.4)
[2023-01-02 12:39] LABS: PHOSPHOROUS 3.3 mg/dL (2.5-4.9)
[2023-01-02] MEDS ORDERED: ACETAMINOPHEN 1000 MG/100 ML BAG IVPB ONE (19:12)
[2023-01-02] MEDS: ACETAMINOPHEN 325 MG TABLET (FP) PO PRN (20:26)
[2023-01-02] MEDS ORDERED: FUROSEMIDE 40 MG/4 ML INJECTABLE VIAL IVPUSH SCH (22:00)
[2023-01-02] MEDS: ATORVASTATIN CA 20 MG TABLET (FP) PO SCH (22:05)
[2023-01-03] MEDS: FUROSEMIDE 40 MG/4 ML INJECTABLE VIAL IVPUSH SCH (06:00)
[2023-01-03] MEDS: METOPROLOL TARTRATE 50 MG TABLET (FP) PO SCH ×2 (10:51→21:36)
[2023-01-03] MEDS: APIXABAN 5 MG TABLET PO SCH ×2 (10:51→21:35)
[2023-01-03 11:33] LABS: POTASSIUM 3.6 mmol/L (3.5-5.1)
[2023-01-03 11:34] LABS: CALCIUM 8.4 mg/dL (8.5-10.1)
[2023-01-03 11:35] LABS: BLOOD UREA NITROGEN 34.8 mg/dL (7-18)
[2023-01-03 11:38] LABS: CREATININE 1.6 mg/dL (0.55-1.3); PHOSPHOROUS 3.4 mg/dL (2.5-4.9)
[2023-01-03] MEDS: ACETAMINOPHEN 325 MG TABLET (FP) PO PRN (14:56)
[2023-01-03] MEDS: ATORVASTATIN CA 20 MG TABLET (FP) PO SCH (21:36)
[2023-01-04] MEDS: FUROSEMIDE 40 MG TABLET (FP) PO SCH (09:51)
[2023-01-04] MEDS: APIXABAN 5 MG TABLET PO SCH ×2 (09:51→21:56)
[2023-01-04] MEDS: METOPROLOL TARTRATE 50 MG TABLET (FP) PO SCH ×2 (09:51→21:56)
[2023-01-04] MEDS: ACETAMINOPHEN 325 MG TABLET (FP) PO PRN (17:55)
[2023-01-04 18:49] VITALS: RESP 18
[2023-01-04] MEDS: ATORVASTATIN CA 20 MG TABLET (FP) PO SCH (21:56)
[2023-01-04] MEDS: hydrOXYzine PAMOATE 50 MG CAPSULE (FP) PO SCH (21:57)
[2023-01-05] MEDS: ACETAMINOPHEN 325 MG TABLET (FP) PO PRN (08:27)
[2023-01-05] MEDS: FUROSEMIDE 40 MG TABLET (FP) PO SCH (09:48)
[2023-01-05] MEDS: METOPROLOL TARTRATE 50 MG TABLET (FP) PO SCH ×2 (09:48→21:32)
[2023-01-05] MEDS: APIXABAN 5 MG TABLET PO SCH ×2 (09:48→21:32)
[2023-01-05 11:08] LABS: POTASSIUM 3.8 mmol/L (3.5-5.1)
[2023-01-05 11:22] LABS: CALCIUM 8.7 mg/dL (8.5-10.1)
[2023-01-05 11:23] LABS: ALBUMIN 2.8 g/dl (3.4-5.0); BLOOD UREA NITROGEN 40.3 mg/dL (7-18)
[2023-01-05 11:26] LABS: CREATININE 1.8 mg/dL (0.55-1.3)
[2023-01-05 11:27] LABS: TOT PROT 6.5 g/dl (6.4-8.2)
[2023-01-05 11:28] LABS: BILIRUBIN,TOTAL 0.6 mg/dL (0.2-1)
[2023-01-05] MEDS: ATORVASTATIN CA 20 MG TABLET (FP) PO SCH (21:32)
[2023-01-05] MEDS: hydrOXYzine PAMOATE 50 MG CAPSULE (FP) PO SCH (21:32)
[2023-01-06 06:32] VITALS: BP 124/68; PULSE 79; TEMP 98.2
[2023-01-06] MEDS: METOPROLOL TARTRATE 50 MG TABLET (FP) PO SCH (10:10)
[2023-01-06] MEDS: FUROSEMIDE 40 MG TABLET (FP) PO SCH (10:10)
[2023-01-06] MEDS: APIXABAN 5 MG TABLET PO SCH (10:10)
[2023-01-06] MEDS: ACETAMINOPHEN 325 MG TABLET (FP) PO PRN (10:17)
== END 2023-01-06 13:00 | disposition home or self-care (01) | DRG 291 ==
LOC: JER 17:19 → JERBED 17:55 → J5S 01-01 00:23
PROVIDERS: ADMIT Internal Medicine
DX: I13.0 Hypertensive heart and chronic kidney disease with heart failure and stage 1 through stage 4 chronic kidney disease, or unspecified chronic kidney disease (principal); I50.33 Acute on chronic diastolic (congestive) heart failure; N17.9 Acute kidney failure, unspecified; I48.20 Chronic atrial fibrillation, unspecified; N18.9 Chronic kidney disease, unspecified; E78.5 Hyperlipidemia, unspecified; I73.9 Peripheral vascular disease, unspecified; B18.2 Chronic viral hepatitis C; J44.9 Chronic obstructive pulmonary disease, unspecified; F02.80 Dementia in other diseases classified elsewhere, unspecified severity, without behavioral disturbance, psychotic disturbance, mood disturbance, and anxiety; I27.20 Pulmonary hypertension, unspecified; N32.81 Overactive bladder; G62.9 Polyneuropathy, unspecified; E87.70 Fluid overload, unspecified; R80.9 Proteinuria, unspecified
CPT/HCPCS: 36415; 70450-TC; 71045-TC-FY; 80048; 80053; 80061; 82607; 82962; 83036; 83735; 83880; 84100; 84443; 84484; 85025; 85027; 87635; 93005; 93010; 93306-TC; 93970-TC; 97116-GP; 97162-GP; 99285-25